=== PATIENT | female | born 1940 | race Caucasian/White ===

== ENCOUNTER 2016-12-15 15:36 | Observation (INO) | payer MEDICARE, BC ==
[~2016-12-15] VITALS: Ht 147.3 cm; Wt 62.0 kg
[2016-12-15 15:40] VITALS: BP 139/66; PULSE 74; RESP 20; TEMP 98.2; O2SAT 96
[2016-12-15] MEDS ORDERED: SODIUM CHLORIDE 0.9% FLUSH 5 ML FLUSH IVF PRN (16:30)
[2016-12-15] MEDS ORDERED: DONE5TAB7 PO (16:31)
[2016-12-15] MEDS ORDERED: ZOLP5TAB3 PO (16:31)
[2016-12-15] MEDS ORDERED: DULO1CAP2 PO (16:31)
[2016-12-15] MEDS ORDERED: CELE1CAP6 PO (16:31)
[2016-12-15] MEDS ORDERED: SPIR50TA PO (16:31)
[2016-12-15] MEDS ORDERED: METO100T PO (16:31)
[2016-12-15] MEDS ORDERED: [UNRECOGNIZED DRUG - CODE] PO (16:31)
[2016-12-15] MEDS ORDERED: OXYC1TAB36 PO (16:31)
[2016-12-15] MEDS ORDERED: TRAZ50TA12 PO (16:31)
[2016-12-15] MEDS ORDERED: ROPI0.5T PO (16:31)
--- NOTE | 2016-12-15 16:31 | PD ---
HPI Chief Complaint: Altered Mental Status Time Seen by Provider: 16:31 Travel History International Travel<30 days: No Contact w/Intl Traveler<30days: No Traveled to known affect area: No History of Present Illness HPI 76-year-old female with a history of hypertension, chronic back pain, dementia is brought to the emergency room by her for evaluation of altered mental status. The patient's states that she does have a history of dementia and forgets dates and times but otherwise remembers most other things. States that over the past 2 days she's been intermittently disoriented, unsure where she is. States that this has happened to her in the past and will happen when she gets urinary tract infections. States that she has not been complaining of anything and has otherwise been doing well. Denies any fever, chills, nausea, vomiting, diarrhea, constipation, chest pain, shortness of breath, cough or cold symptoms. The patient and her are here visiting from [place]. No other complaints. PFSH Past Medical History Narrative Medical Hypertension Dementia Chronic back pain with pain pump ?: Not : 4 Para: 3 Miscarriage: 1 Past Surgical History Cardiac Surgery: Yes (POSSBILE ABLASION TO RESOLVE RAPID HR) Hysterectomy: Yes Social History Alcohol Use: Yes (OCC) Tobacco Use: No Substance Use: No Allergies-Medications (Allergen,Severity, Reaction): Coded Allergies: No Known Allergies (Unverified , 12/15/16) Reported Meds & Prescriptions Reported Meds & Active Scripts Active Reported Oxycodone-Acetaminophen 10-325 mg Tab 1 Tab PO Q6H PRN Profe (Polysaccharide Iron Complex) 180 Mg Cap 1 Cap PO DAILY Zolpidem (Zolpidem Tartrate) 5 Mg Tab 5 Mg PO HS PRN Donepezil 5 Mg Tab 5 Mg PO HS Ropinirole 0.5 Mg Tab 0.5 Mg PO HS Trazodone (Trazodone HCl) 50 Mg Tab 50 Mg PO HS Celecoxib 100 Mg Cap 100 Mg PO BID Metoprolol Tartrate 100 Mg Tab 100 Mg PO BID Spironolactone 50 Mg Tab 50 Mg PO DAILY Duloxetine DR (Duloxetine HCl) 30 Mg Capdr 30 Mg PO DAILY Review of Systems Except as stated in HPI: all other systems reviewed are Neg Physical Exam Narrative GENERAL: Well-nourished and well-developed elderly female patient in no acute distress. SKIN: Warm and dry. HEAD: Normocephalic and atraumatic. EYES: No injection, drainage, or hyphema noted. PERRLA. EOMI. ENT: No nasal drainage noted. Oropharynx is clear. NECK: Supple and the trachea is midline. CARDIOVASCULAR: Regular rate and rhythm. RESPIRATORY: Breath sounds are equal bilaterally with no accessory muscle use, wheezing, rhonchi, or crackles. GASTROINTESTINAL: Abdomen is soft, non-tender, and nondistended. MUSCULOSKELETAL: No obvious deformities, swelling, cyanosis, or ecchymosis is present throughout the upper and lower extremities. Patient has full range of motion without any signs of neurovascular compromise. NEUROLOGICAL: Awake, alert, and oriented to person and place. Unsure of time or situation. Normal speech and gait. Cranial nerves are grossly intact. Data Data Last Documented VS Vital Signs Date Time Temp Pulse Resp B/P Pulse Ox O2 Delivery O2 Flow Rate FiO2 12/15/16 19:28 66 17 174/81 100 Room Air 12/15/16 15:40 98.2 Orders Electrocardiogram (12/15/16 16:29) Ammonia (12/15/16 16:29) Complete Blood Count With Diff (12/15/16 16:29) Comprehensive Metabolic Panel (12/15/16 16:29) Prothrombin Time / Inr (Pt) (12/15/16 16:29) Act Partial Throm Time (Ptt) (12/15/16 16:29) Troponin I (12/15/16 16:29) Lactic Acid Sepsis Protocol (12/15/16 16:29) Urinalysis - C+S If Indicated (12/15/16 16:29) Blood Culture (12/15/16 16:29) Chest, Single Ap (12/15/16 16:29) Blood Glucose (12/15/16 16:29) Ecg Monitoring (12/15/16 16:29) Iv Access Insert/Monitor (12/15/16 16:29) Oximetry (12/15/16 16:29) Sodium Chloride 0.9% Flush (Ns Flush) (12/15/16 16:30) Ct Brain W/O Iv Contrast(Rout) (12/15/16 17:57) Admit Order (Ed Use Only) (12/15/16 19:33) Labs Laboratory Tests Test 12/15/16 12/15/16 12/15/16 07:41 15:20 17:44 White Blood Count 7.4 TH/MM3 Red Blood Count 4.11 MIL/MM3 Hemoglobin 11.0 GM/DL Hematocrit 35.0 % Mean Corpuscular Volume 85.2 FL Mean Corpuscular Hemoglobin 26.8 PG Mean Corpuscular Hemoglobin 31.5 % Concent Red Cell Distribution Width 17.1 % Platelet Count 206 TH/MM3 Mean Platelet Volume 8.9 FL Neutrophils (%) (Auto) 50.3 % Lymphocytes (%) (Auto) 27.7 % Monocytes (%) (Auto) 13.9 % Eosinophils (%) (Auto) 7.0 % Basophils (%) (Auto) 1.1 % Neutrophils # (Auto) 3.7 TH/MM3 Lymphocytes # (Auto) 2.1 TH/MM3 Monocytes # (Auto) 1.0 TH/MM3 Eosinophils # (Auto) 0.5 TH/MM3 Basophils # (Auto) 0.1 TH/MM3 CBC Comment AUTO DIFF Differential Comment AUTO DIFF CONFIRMED Platelet Estimate NORMAL Platelet Morphology Comment NORMAL Prothrombin Time 10.7 SEC Prothromb Time International 1.0 RATIO Ratio Activated Partial 21.2 SEC Thromboplast Time Sodium Level 139 MEQ/L Potassium Level 4.8 MEQ/L Chloride Level 104 MEQ/L Carbon Dioxide Level 26.4 MEQ/L Anion Gap 9 MEQ/L Blood Urea Nitrogen 23 MG/DL Creatinine 1.49 MG/DL Estimat Glomerular Filtration 34 ML/MIN Rate Random Glucose 93 MG/DL Lactic Acid Level 1.6 mmol/L Calcium Level 9.3 MG/DL Total Bilirubin 0.2 MG/DL Aspartate Amino Transf 18 U/L (AST/SGOT) Alanine Aminotransferase 15 U/L (ALT/SGPT) Alkaline Phosphatase 76 U/L Troponin I LESS THAN 0.02 NG/ML Total Protein 6.9 GM/DL Albumin 4.0 GM/DL Urine Color YELLOW Urine Turbidity CLEAR Urine pH 5.5 Urine Specific [place] 1.011 Urine Protein NEG mg/dL Urine Glucose (UA) NEG mg/dL Urine Ketones NEG mg/dL Urine Occult Blood NEG Urine Nitrite NEG Urine Bilirubin NEG Urine Urobilinogen LESS THAN 2.0 MG/DL Urine Leukocyte Esterase NEG Urine WBC LESS THAN 1 /hpf Microscopic Urinalysis Comment CATH-CULT NOT IND Ammonia 28 MCMOL/L [facility] Medical Decision Making Medical Screen Exam Complete: Yes Emergency Medical Condition: Yes Differential Diagnosis Urinary tract infection versus electrolyte abnormality versus dehydration versus dementia Narrative Course 76-year-old female is brought to the emergency department for evaluation of altered mental status. Patient is afebrile, vital signs are stable. Physical examination is essentially unremarkable. IV access was obtained, labs were drawn and sent. CBC shows mild anemia with a hemoglobin of 11.0, otherwise unremarkable. CMP shows moderate renal insufficiency with a creatinine of 1.49, BUN 23, GFR 34. Troponin is less than 0.02. Lactic acid is 1.6. Ammonia is 28. Coags are unremarkable. Urinalysis is unremarkable. Chest x-ray is negative for any acute abnormalities. Head CT is negative for any acute abnormalities, chronic white matter changes noted. The patient will be kept in observation for altered mental status of unclear etiology. I discussed the case with my attending physician Dr. Seymour who is aware of the patients history, physical examination findings, and treatment plan. Physician Communication Physician Communication I spoke with Dr. Blanco [facility] who agrees to keep the patient under observation in her service. Diagnosis Primary Impression: Altered mental status, unspecified Admitting Information Admitting Physician Requests: Admit Vivienne Rey Dec 15, 2016 16:31
--- NOTE | 2016-12-15 17:07 | RADRPT ---
EXAM DATE/TIME: 12/15/2016 16:38 [facility] COMPARISON: No previous studies available for comparison. INDICATIONS : Syncopal episode. MEDICAL HISTORY : None. SURGICAL HISTORY : None. ENCOUNTER: Initial ACUITY: 1 day PAIN SCORE: 0/10 LOCATION: Chest FINDINGS: The heart size is normal. the lungs are grossly clear. There is at least a moderate hi atal hernia present. The patient has a chronic deformity at the proximal left humerus and glenohumer al joint with remodeling. There is some destruction of the left humeral head. There also appears to b e sclerosis in the proximal right humerus. There appears to be a cristobal in the right humerus. Surgical hardware is seen in the lower thoracic and upper lumbar spine. CONCLUSION: 1. No acute cardiopulmonary process. 2. Moderate hiatal hernia. 3. Chronic bony change as described above. Guilherme Cabrera MD on December 15, 2016 at 17:02 Board Certified Radiologist. This report was verified electronically.
[2016-12-15 17:16] LABS: AUTOMATED NEUTROPHIL # 3.7 TH/MM3 (1.8-7.7); BASOPHIL # 0.1 TH/MM3 (0-0.2); BASOPHIL % 1.1 % (0.0-2.0); EOSINOPHIL # 0.5 TH/MM3 (0-0.4); LYMPH % 27.7 % (9.0-44.0); LYMPHOCYTE # 2.1 TH/MM3 (1.0-4.8); MEAN CELL VOLUME 85.2 FL (80.0-100.0); MEAN CORPUSCULAR HEMOGLOBIN 26.8 PG (27.0-34.0); MEAN CORPUSCULAR HGB CONC 31.5 % (32.0-36.0); MONO % 13.9 % (0.0-8.0); NEUT % 50.3 % (16.0-70.0); PLATELET COUNT 206 TH/MM3 (150-450); RED BLOOD COUNT 4.11 MIL/MM3 (4.00-5.30); RED CELL DISTRIBUTION WIDTH 17.1 % (11.6-17.2); WHITE BLOOD COUNT 7.4 TH/MM3 (4.0-11.0)
[2016-12-15 17:32] LABS: ANION GAP 9 MEQ/L (5-15); AST (GOT) 18 U/L (15-37); BICARBONATE 26.4 MEQ/L (21.0-32.0); BLOOD UREA NITROGEN 23 MG/DL (7-18); CHLORIDE 104 MEQ/L (98-107); GLOMERULAR FILTRATION RATE 34 ML/MIN (>89); SODIUM (NA) 139 MEQ/L (136-145)
[2016-12-15 17:34] LABS: POTASSIUM 4.8 MEQ/L (3.5-5.1)
[2016-12-15 17:35] LABS: HEMO FLAGS AUTO DIFF
[2016-12-15 17:36] LABS: ALKALINE PHOSPHATASE 76 U/L (45-117); ALT (GPT) 15 U/L (10-53); TOTAL BILIRUBIN ADULT 0.2 MG/DL (0.2-1.0)
[2016-12-15 17:51] LABS: APTT (PATIENT) 21.2 SEC (24.3-30.1); PROTHROMBIN TIME - PATIENT 10.7 SEC (9.8-11.6)
[2016-12-15 17:55] LABS: BLOOD, URINE NEG (NEG); COMMENT (UR) CATH-CULT NOT IND; CULTURE IF INDICATED CATH CULTURE NOT IND; GLUCOSE,URINE NEG (NEG); KETONE, URINE NEG (NEG); NITRITE,URINE NEG (NEG); PH, URINE 5.5 (5.0-8.5); URINE COLOR YELLOW (YELLW/STRAW)
[2016-12-15 18:00] VITALS: O2SAT 96
[2016-12-15 18:08] LABS: PLATELET ESTIMATE SMEAR NORMAL (NORMAL); PLATELET MORPHOLOGY NORMAL (NORMAL); SCAN/DIFF AUTO DIFF CONFIRMED
--- NOTE | 2016-12-15 19:11 | RADRPT ---
EXAM DATE/TIME: 12/15/2016 18:57 [facility] COMPARISON: No previous studies available for comparison. INDICATIONS : Confusion and altered mental status. RADIATION DOSE: 33.41 CTDIvol (mGy) MEDICAL HISTORY : Cardiovascular disease. SURGICAL HISTORY : Hysterectomy. ENCOUNTER: Initial ACUITY: 1 day PAIN SCALE: 0/10 LOCATION: cranial TECHNIQUE: Multiple contiguous axial images were obtained of the head. Using automated exposure control and adj ustment of the mA and/or kV according to patient size, radiation dose was kept as low as reasonably a chievable to obtain optimal diagnostic quality images. FINDINGS: CEREBRUM: The ventricles are normal for age. No evidence of midline shift, mass lesion, hemorrhage or acute in farction. No extra-axial fluid collections are seen. Chronic low attenuation seen in the periventric ular white matter. POSTERIOR FOSSA: The cerebellum and brainstem are intact. The 4th ventricle is midline. The cerebellopontine angle i s unremarkable. EXTRACRANIAL: The visualized portion of the orbits is intact. SKULL: The calvaria is intact. No evidence of skull fracture. Tortuous basilar artery. CONCLUSION: No acute intracranial abnormality. Chronic white matter changes. Guilherme Woods MD on December 15, 2016 at 19:10 Board Certified Radiologist. This report was verified electronically.
--- NOTE | 2016-12-15 19:18 | PD ---
Physical Exam Date Seen by Provider: Dec 15, 2016 Time Seen by Provider: 17:00 Narrative I, Dr. Seymour, have reviewed the advance practice practitioner's documentation and am in agreement, met with the patient face to face, made the diagnosis, and the medical decision making was done by me. *My assessment and Findings: Patient seen and evaluated with PA, please see PAs note for further information. Patient is here for increased disorientation according to the . She has had a recent UTI as well. Patient on evaluation is awake, alert, disoriented. Has no complaints. Pulmonary and cardiac exam is unremarkable. Abdomen is benign. EKG shows NSR, no ST elevation or depression, and no arrhythmias. No significant T-wave inversions. Laboratory Tests Test 12/15/16 07:41 Hemoglobin 11.0 GM/DL (11.6-15.3) Mean Corpuscular Hemoglobin 26.8 PG (27.0-34.0) Mean Corpuscular Hemoglobin 31.5 % Concent (32.0-36.0) Monocytes (%) (Auto) 13.9 % (0.0-8.0) Eosinophils (%) (Auto) 7.0 % (0.0-4.0) Monocytes # (Auto) 1.0 TH/MM3 (0-0.9) Eosinophils # (Auto) 0.5 TH/MM3 (0-0.4) Activated Partial 21.2 SEC Thromboplast Time (24.3-30.1) Blood Urea Nitrogen 23 MG/DL (7-18) Creatinine 1.49 MG/DL (0.50-1.00) Estimat Glomerular Filtration 34 ML/MIN (>89) Rate Troponin I LESS THAN 0.02 NG/ML (0.02-0.05) Last 24 hours Impressions Chest X-Ray 12/15/16 1629 Signed Impressions: Service Date/Time: November 16:38 - CONCLUSION: 1. No acute cardiopulmonary process. 2. Moderate hiatal hernia. 3. Chronic bony change as described above. Guilherme Cabrera MD CT of the brain is unremarkable. At this point, my plan would be to admit the patient for altered mental status as an observation. Data Data Last Documented VS Vital Signs Date Time Temp Pulse Resp B/P Pulse Ox O2 Delivery O2 Flow Rate FiO2 12/15/16 18:00 96 Room Air 12/15/16 15:40 98.2 74 20 139/66 Orders Electrocardiogram (12/15/16 16:29) Ammonia (12/15/16 16:29) Complete Blood Count With Diff (12/15/16 16:29) Comprehensive Metabolic Panel (12/15/16 16:29) Prothrombin Time / Inr (Pt) (12/15/16 16:29) Act Partial Throm Time (Ptt) (12/15/16 16:29) Troponin I (12/15/16 16:29) Lactic Acid Sepsis Protocol (12/15/16 16:29) Urinalysis - C+S If Indicated (12/15/16 16:29) Blood Culture (12/15/16 16:29) Chest, Single Ap (12/15/16 16:29) Blood Glucose (12/15/16 16:29) Ecg Monitoring (12/15/16 16:29) Iv Access Insert/Monitor (12/15/16 16:29) Oximetry (12/15/16 16:29) Sodium Chloride 0.9% Flush (Ns Flush) (12/15/16 16:30) Ct Brain W/O Iv Contrast(Rout) (12/15/16 17:57) Labs Laboratory Tests Test 12/15/16 12/15/16 12/15/16 07:41 15:20 17:44 White Blood Count 7.4 TH/MM3 Red Blood Count 4.11 MIL/MM3 Hemoglobin 11.0 GM/DL Hematocrit 35.0 % Mean Corpuscular Volume 85.2 FL Mean Corpuscular Hemoglobin 26.8 PG Mean Corpuscular Hemoglobin 31.5 % Concent Red Cell Distribution Width 17.1 % Platelet Count 206 TH/MM3 Mean Platelet Volume 8.9 FL Neutrophils (%) (Auto) 50.3 % Lymphocytes (%) (Auto) 27.7 % Monocytes (%) (Auto) 13.9 % Eosinophils (%) (Auto) 7.0 % Basophils (%) (Auto) 1.1 % Neutrophils # (Auto) 3.7 TH/MM3 Lymphocytes # (Auto) 2.1 TH/MM3 Monocytes # (Auto) 1.0 TH/MM3 Eosinophils # (Auto) 0.5 TH/MM3 Basophils # (Auto) 0.1 TH/MM3 CBC Comment AUTO DIFF Differential Comment AUTO DIFF CONFIRMED Platelet Estimate NORMAL Platelet Morphology Comment NORMAL Prothrombin Time 10.7 SEC Prothromb Time International 1.0 RATIO Ratio Activated Partial 21.2 SEC Thromboplast Time Sodium Level 139 MEQ/L Potassium Level 4.8 MEQ/L Chloride Level 104 MEQ/L Carbon Dioxide Level 26.4 MEQ/L Anion Gap 9 MEQ/L Blood Urea Nitrogen 23 MG/DL Creatinine 1.49 MG/DL Estimat Glomerular Filtration 34 ML/MIN Rate Random Glucose 93 MG/DL Lactic Acid Level 1.6 mmol/L Calcium Level 9.3 MG/DL Total Bilirubin 0.2 MG/DL Aspartate Amino Transf 18 U/L (AST/SGOT) Alanine Aminotransferase 15 U/L (ALT/SGPT) Alkaline Phosphatase 76 U/L Troponin I LESS THAN 0.02 NG/ML Total Protein 6.9 GM/DL Albumin 4.0 GM/DL Urine Color YELLOW Urine Turbidity CLEAR Urine pH 5.5 Urine Specific [place] 1.011 Urine Protein NEG mg/dL Urine Glucose (UA) NEG mg/dL Urine Ketones NEG mg/dL Urine Occult Blood NEG Urine Nitrite NEG Urine Bilirubin NEG Urine Urobilinogen LESS THAN 2.0 MG/DL Urine Leukocyte Esterase NEG Urine WBC LESS THAN 1 /hpf Microscopic Urinalysis Comment CATH-CULT NOT IND Ammonia 28 MCMOL/L [facility] Medical Record Reviewed: Yes Supervised Visit with BEE: Yes Diagnosis Primary Impression: ALTERED MENTAL STATUS, UNSPECIFIED Admitting Information Admitting Physician Requests: it Ollie Seymour MD Dec 15, 2016 19:18
[2016-12-15 19:28] VITALS: BP 174/81; PULSE 66; RESP 17; O2SAT 100
[2016-12-15] MEDS ORDERED: NALOXONE HCL 0.4 MG/ML AMP IV PRN (19:45)
[2016-12-15] MEDS ORDERED: SODIUM CHLORIDE 0.9% FLUSH 5 ML FLUSH FLUSH PRN (19:45)
[2016-12-15 20:45] VITALS: BP 167/80; PULSE 70; RESP 14; O2SAT 97
[2016-12-15] MEDS ORDERED: SODIUM CHLORIDE 0.9% FLUSH 5 ML FLUSH FLUSH SCH (21:00)
[2016-12-15 21:35] VITALS: PULSE 73
[2016-12-15 21:36] VITALS: BP 146/66; PULSE 70; RESP 20; O2SAT 99
[2016-12-15] MEDS ORDERED: oxyCODONE/ACETAMINOPHEN 10 MG/325 MG TAB PO PRN (21:45)
--- NOTE | 2016-12-15 22:11 | HHI.HP ---
[facility] Primary Care Physician Non-Staff Admission Diagnosis Altered Mental Status Diagnoses: Chief Complaint: confusion Travel History International Travel<30 Days: No Contact w/Intl Traveler <30 Da: No Traveled to Known Affected Are: No History of Present Illness 76 y/o female with a history of dementia, htn, chronic back pain, and anemia was brought in by her to the ED with complaints of increased confusion more so than normal. Patient's is not currently at the bedside. Patient does have dementia and is not able to provide much history and ROS is limited. She only talks about her back pain, and her surgery she had 5 years ago. Per the ER report the patients stated they are from [place] and he noticed her having increased confusion for the last 2 days. Patient does know she came to [facility] but states she has been here for months. She does deny any chest pain, sob, fever or chills. Review of Systems ROS Limitations: Poor Historian Constitutional: DENIES: Fever, Chills Respiratory: DENIES: Cough, Shortness of breath Cardiovascular: DENIES: Chest pain, Lower Extremity Edema, Orthopnea Gastrointestinal: COMPLAINS OF: Diarrhea, DENIES: Nausea, Vomiting Musculoskeletal: COMPLAINS OF: Back pain (Chronic), DENIES: Neck pain Neurologic: DENIES: Headache Past Family Social History Past Medical History Per EMR HTN Chronic back pain Dementia Anemia Past Surgical History Per EMR Ablation Hysterectomy Reported Medications Reported Meds & Active Scripts Active Reported Oxycodone-Acetaminophen 10-325 mg Tab 1 Tab PO Q6H PRN Profe (Polysaccharide Iron Complex) 180 Mg Cap 1 Cap PO DAILY Zolpidem (Zolpidem Tartrate) 5 Mg Tab 5 Mg PO HS PRN Donepezil 5 Mg Tab 5 Mg PO HS Ropinirole 0.5 Mg Tab 0.5 Mg PO HS Trazodone (Trazodone HCl) 50 Mg Tab 50 Mg PO HS Celecoxib 100 Mg Cap 100 Mg PO BID Metoprolol Tartrate 100 Mg Tab 100 Mg PO BID Spironolactone 50 Mg Tab 50 Mg PO DAILY Duloxetine DR (Duloxetine HCl) 30 Mg Capdr 30 Mg PO DAILY Allergies: Coded Allergies: No Known Allergies (Unverified , 12/15/16) Active Ordered Medications Current Medications Medications (Trade) Dose Ordered Sig/Jennifer Route Start Time Stop Time Status Last Admin (NS Flush) 2 ml UNSCH PRN FLUSH 12/15/16 19:45 (NS Flush) 2 ml BID FLUSH 12/15/16 21:00 (Lovenox Inj) 30 mg Q24H SQ 12/16/16 09:00 (Narcan Inj) 0.4 mg UNSCH PRN IV 12/15/16 19:45 (Percocet 10-325 Mg) 1 tab Q6H PRN PO 12/15/16 21:45 Family History Patient is unable to provide family history Social History Tobacco use: denies Alcohol use: denies Physical Exam Vital Signs Vital Signs Date Time Temp Pulse Resp B/P Pulse Ox O2 Delivery O2 Flow Rate FiO2 12/15/16 21:36 70 20 146/66 99 12/15/16 21:35 73 12/15/16 20:46 70 14 97 Room Air 12/15/16 20:45 70 14 167/80 97 Room Air 12/15/16 19:28 66 17 174/81 100 Room Air 12/15/16 18:00 96 Room Air 12/15/16 16:07 97 Room Air 12/15/16 15:40 98.2 74 20 139/66 96 Room Air Physical Exam GENERAL: This is a well-nourished, well-developed patient, in no apparent distress. SKIN: No rashes, ecchymoses or lesions. Cool and dry. HEAD: Atraumatic. Normocephalic. EYES: Pupils equal round and reactive. Extraocular motions intact. ENT: Nose without bleeding, purulent drainage or septal hematoma. Airway patent. NECK: Trachea midline. No JVD or lymphadenopathy. Supple, nontender, no meningeal signs. CARDIOVASCULAR: Regular rate and rhythm without murmurs, gallops, or rubs. RESPIRATORY: Clear to auscultation. Breath sounds equal bilaterally. No wheezes , rales, or rhonchi. GASTROINTESTINAL: Abdomen soft, non-tender, nondistended. . No guarding. MUSCULOSKELETAL: Extremities without clubbing, cyanosis, or edema. No joint tenderness, effusion, or edema noted. No calf tenderness. NEUROLOGICAL: Awake and alert. Motor and sensory grossly within normal limits. Normal speech. Laboratory Laboratory Tests Test 12/15/16 12/15/16 12/15/16 07:41 15:20 17:44 White Blood Count 7.4 Red Blood Count 4.11 Hemoglobin 11.0 Hematocrit 35.0 Mean Corpuscular Volume 85.2 Mean Corpuscular Hemoglobin 26.8 Mean Corpuscular Hemoglobin 31.5 Concent Red Cell Distribution Width 17.1 Platelet Count 206 Mean Platelet Volume 8.9 Neutrophils (%) (Auto) 50.3 Lymphocytes (%) (Auto) 27.7 Monocytes (%) (Auto) 13.9 Eosinophils (%) (Auto) 7.0 Basophils (%) (Auto) 1.1 Neutrophils # (Auto) 3.7 Lymphocytes # (Auto) 2.1 Monocytes # (Auto) 1.0 Eosinophils # (Auto) 0.5 Basophils # (Auto) 0.1 CBC Comment AUTO DIFF Differential Comment AUTO DIFF CONFIRMED Platelet Estimate NORMAL Platelet Morphology Comment NORMAL Prothrombin Time 10.7 Prothromb Time International 1.0 Ratio Activated Partial 21.2 Thromboplast Time Sodium Level 139 Potassium Level 4.8 Chloride Level 104 Carbon Dioxide Level 26.4 Anion Gap 9 Blood Urea Nitrogen 23 Creatinine 1.49 Estimat Glomerular Filtration 34 Rate Random Glucose 93 Lactic Acid Level 1.6 Calcium Level 9.3 Total Bilirubin 0.2 Aspartate Amino Transf 18 (AST/SGOT) Alanine Aminotransferase 15 (ALT/SGPT) Alkaline Phosphatase 76 Troponin I LESS THAN 0.02 Total Protein 6.9 Albumin 4.0 Urine Color YELLOW Urine Turbidity CLEAR Urine pH 5.5 Urine Specific [place] 1.011 Urine Protein NEG Urine Glucose (UA) NEG Urine Ketones NEG Urine Occult Blood NEG Urine Nitrite NEG Urine Bilirubin NEG Urine Urobilinogen LESS THAN 2.0 Urine Leukocyte Esterase NEG Urine WBC LESS THAN 1 Microscopic Urinalysis Comment CATH-CULT NOT IND Ammonia 28 Date/Time Procedure Status Source Growth 12/15/16 16:45 Aerobic Blood Culture Received Blood Peripheral Pending 12/15/16 16:45 Anaerobic Blood Culture Received Blood Peripheral Pending Result Diagram: 12/15/16 0741 12/15/16 0741 Imaging Last Impressions Head CT 12/15/16 [id number] Signed Impressions: Service Date/Time: November 18:57 - CONCLUSION: No acute intracranial abnormality. Chronic white matter changes. Guilherme Woods MD Chest X-Ray 12/15/16 [id number] Signed Impressions: Service Date/Time: November 16:38 - CONCLUSION: 1. No acute cardiopulmonary process. 2. Moderate hiatal hernia. 3. Chronic bony change as described above. Guilherme Cabrera MD Assessment and Plan Problem List: (1) Altered mental status, unspecified ICD Code: R41.82 Status: Acute (2) RAF (acute kidney injury) ICD Code: N17.9 Status: Acute (3) Chronic back pain ICD Code: M54.9 Status: Chronic Assessment and Plan 76 y/o female with a history of dementia, htn, chronic back pain, and anemia was brought in by her to the ED with complaints of increased confusion more so than normal. Altered mental status, acute Labs: UA negative, Ammonia 28 Images reviewed: Head CT unremarkable -EEG ordered -Neuro checks Acute kidney injury, acute Labs: creatine 1.4 unknown baseline -Gentle IVF -BMP in AM Chronic back pain, chronic -Pain management with [place] DVT prophylaxis: Lovenox Written by Abimbola KENDRICK, acting as scribe for Dr. Blanco on 12/15/16 at 2238. All or portions of this note were transcribed by scribe [Abimbola Rojo]. I, Dr. Billy Blanco personally performed the history, physical exam, and medical decision making; and confirmed the accuracy of the information in the transcribed note. Authenticated by Dr. Billy Blanco on 12/15/16 at 2238. Discussed Condition With Patient, ER physician and RN Abimbola Rojo Dec 15, 2016 22:11 Billy Blanco MD Dec 16, 2016 08:20
[2016-12-16 03:33] VITALS: BP 157/85; PULSE 86; O2SAT 95
[2016-12-16 07:14] LABS: AUTOMATED NEUTROPHIL # 2.8 TH/MM3 (1.8-7.7); BASOPHIL # 0.1 TH/MM3 (0-0.2); BASOPHIL % 1.2 % (0.0-2.0); EOSINOPHIL # 0.4 TH/MM3 (0-0.4); EOSINOPHIL % 7.4 % (0.0-4.0); HEMATOCRIT 32.8 % (35.0-46.0); HEMO FLAGS DIFF FINAL; LYMPH % 26.3 % (9.0-44.0); LYMPHOCYTE # 1.4 TH/MM3 (1.0-4.8); MEAN CELL VOLUME 84.6 FL (80.0-100.0); MEAN CORPUSCULAR HEMOGLOBIN 27.4 PG (27.0-34.0); MEAN CORPUSCULAR HGB CONC 32.4 % (32.0-36.0); MONO % 13.2 % (0.0-8.0); NEUT % 51.9 % (16.0-70.0); PLATELET COUNT 205 TH/MM3 (150-450); RED BLOOD COUNT 3.88 MIL/MM3 (4.00-5.30); RED CELL DISTRIBUTION WIDTH 17.2 % (11.6-17.2); WHITE BLOOD COUNT 5.5 TH/MM3 (4.0-11.0)
[2016-12-16 07:25] LABS: BICARBONATE 25.1 MEQ/L (21.0-32.0)
[2016-12-16 07:57] VITALS: BP 141/64; PULSE 84; RESP 14; TEMP 97.6; O2SAT 99
[2016-12-16 08:00] VITALS: PULSE 71
[2016-12-16] MEDS ORDERED: METOPROLOL TARTRATE 100 MG TAB PO SCH (09:00)
[2016-12-16] MEDS ORDERED: ENOXAPARIN SODIUM 30 MG/0.3 ML SYRINGE SQ SCH (09:00)
[2016-12-16] MEDS ORDERED: DULoxetine HCl DR 30 MG CAP PO SCH (09:00)
[2016-12-16] MEDS ORDERED: SODIUM CHLORID 0.9% 500 ML INJ 500 ML IV SCH (09:00)
--- NOTE | 2016-12-16 09:01 | HHI.PR ---
Subjective Remarks Follow-up for confusion, back pain. Patient is awake, alert, oriented to person , knows she is in a hospital in [place], but states the date is November 1975. She is able to tell me that she is from [place], [place], and that she traveled here one week ago to live in [place], [place]. She states she has family in [place] but not in [place]. She states that she has had low back pain for 34 years however it has been worsening recently. She denies any recent fall or injury. She states she takes an unknown pain medication every three hours at home for the pain. She does not remember becoming very confused yesterday, however does recall having difficulty swallowing with increased weakness. She states her called her doctor who was concerned that she may have had a small stroke and said she needed to come to the hospital. Currently, the patient complains of worsening chronic leg weakness secondary to her back pain, does occasionally have numbness and tingling of her legs but denies any incontinence/saddle anesthesia. She denies any difficulty swallowing this morning however also has not had breakfast yet. She denies any other medical complaints at this time including no chest pain, shortness of breath, abdominal pain, or urinary complaints. Objective Vitals Vital Signs Date Time Temp Pulse Resp B/P Pulse Ox O2 Delivery O2 Flow Rate FiO2 12/16/16 07:57 97.6 84 14 141/64 99 12/16/16 03:33 86 157/85 95 12/16/16 00:11 16 12/15/16 21:36 70 20 146/66 99 12/15/16 21:35 73 12/15/16 20:46 70 14 97 Room Air 12/15/16 20:45 70 14 167/80 97 Room Air 12/15/16 19:28 66 17 174/81 100 Room Air 12/15/16 18:00 96 Room Air 12/15/16 16:07 97 Room Air 12/15/16 15:40 98.2 74 20 139/66 96 Room Air Result Diagram: 12/16/16 0550 12/16/16 0550 Imaging Last Impressions Head CT 12/15/16 4144 Signed Impressions: Service Date/Time: November 18:57 - CONCLUSION: No acute intracranial abnormality. Chronic white matter changes. Guilherme Woods MD Chest X-Ray 12/15/16 9386 Signed Impressions: Service Date/Time: November 16:38 - CONCLUSION: 1. No acute cardiopulmonary process. 2. Moderate hiatal hernia. 3. Chronic bony change as described above. Guilherme Cabrera MD Objective Remarks GENERAL: Well-nourished, well-developed very pleasant elderly female patient in [facility]. SKIN: Warm and dry. No rash. HEENT: Normocephalic. Atraumatic.Pupils equal and round. No scleral icterus. No injection or drainage. Mucous membranes pink and moist. NECK: Supple. Trachea midline. CARDIOVASCULAR: Regular rate and rhythm. S1, S2 noted. No murmur appreciated. RESPIRATORY: No accessory muscle use. Clear to auscultation. Breath sounds equal bilaterally. GASTROINTESTINAL: Abdomen soft, non-tender, nondistended. Normoactive bowel sounds x4. MUSCULOSKELETAL: No obvious deformities. Extremities without clubbing, cyanosis , or edema. NEUROLOGICAL: Awake and alert, oriented to person/place. No obvious cranial nerve deficits. Motor grossly within normal limits. 5/4 strength of b/l upper extremities. 4/5 muscle strength in bilateral lower extremities. Normal speech. PSYCHIATRIC: Appropriate mood and affect; insight and judgment fair to normal. Medications and IVs Current Medications Medications (Trade) Dose Ordered Sig/Jennifer Route Start Time Stop Time Status Last Admin (NS Flush) 2 ml UNSCH PRN FLUSH 12/15/16 19:45 12/15/16 23:03 (NS Flush) 2 ml BID FLUSH 12/15/16 21:00 12/15/16 23:03 (Lovenox Inj) 30 mg Q24H SQ 12/16/16 09:00 (Narcan Inj) 0.4 mg UNSCH PRN IV 12/15/16 19:45 (Percocet 10-325 Mg) 1 tab Q6H PRN PO 12/15/16 21:45 12/15/16 23:03 A/P Problem List: (1) Altered mental status, unspecified ICD Code: R41.82 Status: Acute (2) RAF (acute kidney injury) ICD Code: N17.9 Status: Acute (3) Chronic back pain ICD Code: M54.9 Status: Chronic Assessment and Plan 76 y/o female with a history of rheumatoid arthritis, dementia, HTN, chronic back pain, and anemia was brought in by her to the ED with complaints of increased confusion more so than normal. Toxic/Metabolic Encephalopathy: presented with increasing confusion/weakness. Possibly medication side effect, patient reports taking unknown pain med every 3 hrs at home for back pain. Also possibly related to dehydration/RAF with recent decreased oral intake secondary to recent dysphagia. Initial Head CT images reviewed, unremarkable. UA negative, Ammonia 28. Concern for possible TIA /CVA, check Brain MRI. Check EEG. Neuro checks. PT/OT/ST. Acute kidney injury: Labs: creatine 1.4 unknown baseline however patient denies any hx of renal insufficiency. Give gentle IVF, 500cc @ 100ml/hr. Monitor BMP, slightly improved today. Avoid nephrotoxins. Hold patient's spironolactone. Acute on Chronic Back Pain: Check lumbar xray. Consult PT. Continue patient's Cymbalta. Pain management with Percocet prn. Hypertension: chronic, continue patient's metoprolol, hold patient's spironolactone. Dementia: chronic, continue patient's Aricept. DVT prophylaxis: Lovenox Discussed with RN and Dr. Will. Discharge Planning [id number]: The patient's has arrived, since patient is feeling better, he does not want to keep her in the hospital any longer and is now signing her out AMA to return to [place] TODAY and see her doctors immediately upon arrival home. Patient and unwilling to stay for results of lumbar xray or brain MRI. The patient will be discharged AGAINST MEDICAL ADVICE. Chichi Gaona PA-C Dec 16, 2016 9:01 am
--- NOTE | 2016-12-16 09:59 | RADRPT ---
EXAM DATE/TIME: 12/16/2016 09:15 [facility] COMPARISON: No previous studies available for comparison. INDICATIONS: Low back pain. MEDICAL HISTORY: SURGICAL HISTORY: Fusion, lumbar. Fusion, thoracic. Neurostimulator. ENCOUNTER: Initial ACUITY: 2 days PAIN SCORE: 10/10 LOCATION: Bilateral lower back. FINDINGS: There are transpedicular screws at the T10, T11, L2 and L3 levels connected with vertical rods. Thes e are also connected at the T12 level posteriorly. The patient has compression fractures at the T12 and L1 vertebral bodies. There is a levocurvature of the thoracolumbar region. There is some end pl ate irregularity and loss of height at the superior aspect of L4 and L5. There is disc space narrowi ng at the L3-L4, L4-L5 and L5-S1 levels. The sacroiliac joints are intact. There is a electronic de vice seen over left abdomen with the leads directed into the spinal canal. The bones appear osteopen ic. CONCLUSION: 1... Degenerative change and postoperative change as described above. The patient has compression d eformities at T12 and L1 which presumably caused the stabilization surgery. Patient also has some mi ld loss of height at the superior aspect of L4 and L5. Guilherme Cabrera MD on December 16, 2016 at 9:45 Board Certified Radiologist. This report was verified electronically.
--- NOTE | 2016-12-16 15:40 | EKG ---
Date Performed: 12/15/2016 Time Performed: 17:37:11 PTAGE: 76 years EKG: Sinus rhythm WITH FIRST DEGREE AV BLOCK WITH OCCASIONAL SUPRAVENTRICULAR PREMATURE COMPLEXES BASELINE ARTIFACT AB NORMAL ECG NO PREVIOUS TRACING No prior for comparison. DOCTOR: Alesha Berger Interpretating Date/Time 12/16/2016 15:38:49
[2016-12-16] MEDS ORDERED: traZODone HCL 50 MG TAB PO SCH (21:00)
[2016-12-16] MEDS ORDERED: DONEPEZIL HCL 5 MG TAB PO SCH (21:00)
== END 2016-12-16 10:47 | disposition home or self-care (01) ==
LOC: NEPC 15:36 → NEDA 19:35 → NEPGCP 21:14
PROVIDERS: ADMIT Hospitalist; ATTEND Hospitalist
DX: R41.82 Altered mental status, unspecified (principal); N17.9 Acute kidney failure, unspecified; I10 Essential (primary) hypertension; G89.29 Other chronic pain; M54.5 Low back pain; F03.90 Unspecified dementia, unspecified severity, without behavioral disturbance, psychotic disturbance, mood disturbance, and anxiety; M06.9 Rheumatoid arthritis, unspecified; D64.9 Anemia, unspecified
CPT/HCPCS: 70450; 71010; 72100; 80048; 80053; 81001; 82140; 82550; 83605; 84484; 85025; 85610; 85730; 87040; 93005; 96125; 97163; 99285; G0378; G8987; G8988; G9168; G9169; G9170